=== PATIENT | female | born 2005 | race African-American/Black ===

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

== ENCOUNTER 2024-05-22 18:17 | Emergency (ER) | payer BC, OTHER | END 2024-05-22 22:11 | disposition home or self-care (01) | LOC: ERS 18:17 | DX: S09.90XA Unspecified injury of head, initial encounter (principal); M54.2 Cervicalgia; M54.9 Dorsalgia, unspecified; W01.198A Fall on same level from slipping, tripping and stumbling with subsequent striking against other object, initial encounter | CPT/HCPCS: 70450; 72125; 72128; 72131; 81025 ==